=== PATIENT | male | born 1955 | race Caucasian/White ===

== ENCOUNTER 2018-07-29 09:21 | Emergency (ER) | payer MEDICARE ==
[~2018-07-29] VITALS: Ht 157.5 cm; Wt 95.0 kg
[~2018-07-29 09:21] MED LIST: ATE25T PO; BUDE10.2 INH; FLO0.4C PO; FLUO20CA39 PO; GABA600T2 PO; GEMF600T5 PO; GLIP10TA11 PO; LISI-644 PO; METF1000 PO; NAPR-56 PO; ZIPR60CA2 PO
[2018-07-29] MEDS ORDERED: aspirin 81mg tab.chew PO ONE (10:00)
[2018-07-29] MEDS ORDERED: ipratropium/albuterol 3ml nebule NEB ONE (10:00)
[2018-07-29 10:28] LABS: BASOPHILS % (AUTO) 0.3 % (0-1); EOSINOPHILS % (AUTO) 0.4 % (0-6); HEMATOCRIT 41.5 % (42.0-52.0); HEMOGLOBIN 14.1 g/dl (14.0-17.9); LYMPHOCYTES # (AUTO) 1.4 X10'3 (1.1-4.8); LYMPHOCYTES % (AUTO) 14.5 % (21-51); MEAN CORPUSCULAR HEMOGLOBIN 28.8 PG (27.0-31.0); MEAN CORPUSCULAR VOLUME 84.8 FL (78-98); MEAN PLATELET VOLUME 8.3 FL (7.4-10.4); MONOCYTES # (AUTO) 0.4 X10'3 (0-0.9); MONOCYTES % (AUTO) 4.7 % (2-12); NEUTROPHILS # (AUTO) 7.6 X10'3 (1.8-7.7); NEUTROPHILS % (AUTO) 80.1 % (42-75); PLATELET COUNT 243 X10'3 (140-440); RED CELL DISTRIBUTION WIDTH 13.3 % (11.5-14.5); WHITE BLOOD COUNT 9.5 X10'3 (4.5-11.0)
[2018-07-29 10:45] LABS: ALANINE AMINOTRANSFERASE 37 U/L (12-78); ALBUMIN 3.8 G/DL (3.4-5.0); ALBUMIN/GLOBULIN RATIO 1.1 (1.1-1.5); ALKALINE PHOSPHATASE 88 IU/L (46-116); ANION GAP 8 (8-16); ASPARTATE AMINO TRANSFERASE 23 U/L (10-37); BILIRUBIN,TOTAL 0.7 MG/DL (0.1-1.0); BLOOD UREA NITROGEN 9 MG/DL (7-18); BUN/CREATININE RATIO 9.3 (5.4-32.0); CHLORIDE 94 MMOL/L (99-107); CREATININE 0.97 MG/DL (0.60-1.10); GLUCOSE 218 MG/DL (70-104); POTASSIUM 3.7 MMOL/L (3.5-5.1); SODIUM 128 MMOL/L (135-145); TOTAL CARBON DIOXIDE 25.9 MMOL/L (24-32); TOTAL PROTEIN 7.4 G/DL (6.4-8.2); eGFR 78 ML/MIN
[2018-07-29 10:51] LABS: PHOSPHORUS 3.3 MG/DL (2.3-4.5)
[2018-07-29] MEDS ORDERED: normal saline 1000ML IV soln IVB ONE (11:00)
[2018-07-29] MEDS ORDERED: ATEN25TA PO (11:09)
[2018-07-29] MEDS ORDERED: ASPI-611 PO (11:09)
[2018-07-29] MEDS ORDERED: CETI10TA15 PO (11:09)
[2018-07-29] MEDS ORDERED: ATOR40TA PO (11:09)
[2018-07-29] MEDS ORDERED: FLUO20CA39 PO (11:09)
[2018-07-29] MEDS ORDERED: GABA300S PO (11:09)
[2018-07-29] MEDS ORDERED: LOSA50TA3 PO (11:13)
[2018-07-29] MEDS ORDERED: OXYB5TAB11 PO (11:13)
[2018-07-29] MEDS ORDERED: SAXA5TAB PO (11:14)
[2018-07-29] MEDS ORDERED: ALBU8HFA PO (11:16)
[2018-07-29] MEDS ORDERED: INSU100I25 SQ (11:19)
[2018-07-29] MEDS ORDERED: INSU100C4 SQ (11:19)
[2018-07-29] MEDS: magnesium 1gm/100ml D5W IVPB 100 ML IV SCH ×2 (11:22→12:16)
[2018-07-29] MEDS ORDERED: LIDO700A47 TOP (11:24)
[2018-07-29 13:00] VITALS: BP 186/93
[2018-07-29] MEDS ORDERED: proCHLORperazine 10 MG/2 ml inj IV ONE (13:40)
== END 2018-07-29 14:35 | disposition home or self-care (01) ==
LOC: ER 09:22
DX: J44.1 Chronic obstructive pulmonary disease with (acute) exacerbation (principal); J06.9 Acute upper respiratory infection, unspecified; E83.42 Hypomagnesemia; E78.00 Pure hypercholesterolemia, unspecified; I10 Essential (primary) hypertension; E11.9 Type 2 diabetes mellitus without complications; F17.200 Nicotine dependence, unspecified, uncomplicated; F12.90 Cannabis use, unspecified, uncomplicated; Z98.890 Other specified postprocedural states; Z79.82 Long term (current) use of aspirin; Z79.4 Long term (current) use of insulin; Z79.899 Other long term (current) drug therapy
CPT/HCPCS: 36415; 71046; 80053; 83735; 83880; 84100; 84484; 85025; 93005; 94640; 94760; 96365; 96366; 96375; 99285; J0780; J7030; 96368